=== PATIENT | female | born 1975 | race Caucasian/White ===

== ENCOUNTER 2019-05-20 22:28 | Emergency (ER) | payer SELFPAY ==
[~2019-05-20] VITALS: Ht 157.5 cm; Wt 59.1 kg
[2019-05-20 22:30] VITALS: Ht 157.5 cm; Wt 59.1 kg
[2019-05-20 23:10] VITALS: BP 110/86
== END 2019-05-20 23:11 | disposition home or self-care (01) ==
LOC: D.ER 22:28
DX: S01.81XA Laceration without foreign body of other part of head, initial encounter (principal); W19.XXXA Unspecified fall, initial encounter